=== PATIENT | female | born 1945 | race Caucasian/White ===

== ENCOUNTER 2017-08-12 21:23 | Observation (INO) | payer OTHER ==
--- NOTE | 2017-08-12 21:41 | PDOC ---
History of Present Illness - General History Source: Patient, Significant Other Exam Limitations: No Limitations - History of Present Illness Initial Comments: 08/12/17 22:35 The patient is a 72 year old female, with a significant past medical history of HTN, CAD s/p stent, DM, HLD who presents to the emergency department with sudden onset of headache and aphasia since 7PM this evening. Patients at bedside, reports has intermittent difficulty expressing words. Patient also reports SOB. Patient denies any weakness or numbness. 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 She denies chest pain, headache or dizziness. She denies fever, chills, abdominal pain, nausea, vomit, diarrhea or constipation. She denies dysuria, frequency, urgency or hematuria. Patient denies sick contacts or recent travel. Allergies: NKA PCP: Erick Cardiology: Abiodun <Dina Davison - Last Filed: 08/12/17 23:00> - General History Source: Patient <Mario Mohan - Last Filed: 08/13/17 19:35> - General Chief Complaint: CVA/TIA Stated Complaint: EVALUATION Time Seen by Provider: 08/12/17 21:38 Past History <Dina Daviosn - Last Filed: 08/12/17 23:00> - Past Medical History Cardiac Disorders: Yes Diabetes: Yes GI Disorders: Yes HTN: Yes Hypercholesterolemia: Yes - Surgical History Cardiac Surgery: Yes (STENT) - Suicide/Smoking/Psychosocial Hx Smoking Status: No Smoking History: Never smoked Have you smoked in the past 12 months: No Information on smoking cessation initiated: No Hx Alcohol Use: No Drug/Substance Use Hx: No Substance Use Type: None <Mario Mohan - Last Filed: 08/13/17 19:35> - Past Medical History Allergies/Adverse Reactions: Allergies Allergy/AdvReac Type Severity Reaction Status Date / Time No Known Allergies Allergy Verified 12/12/15 09:20 Home Medications: Ambulatory Orders Aspirin [ASA -] 81 mg PO DAILY 12/12/15 Atorvastatin Ca [Lipitor -] 40 mg PO HS 12/12/15 Cholecalciferol (Vitamin D3) [Vitamin D] 2,000 unit PO DAILY 12/12/15 Glyburide/Metformin HCl [Glyburide-Metformin 2.5-500 mg] 2 each PO BID 12/12/15 Lisinopril [Prinivil -] 20 mg PO DAILY 12/12/15 Metoprolol Succinate [Toprol Xl -] 25 mg PO DAILY 12/12/15 Sitagliptin Phosphate [Januvia] 100 mg PO DAILY 12/12/15 Review of Systems - Review of Systems Able to Perform ROS?: Yes Comments:: 08/12/17 22:35 CONSTITUTIONAL: Absent: fever, chills, diaphoresis, generalized weakness, malaise, loss of appetite HEENT: Absent: rhinorrhea, nasal congestion, throat pain, throat swelling, difficulty swallowing, mouth swelling, ear pain, eye pain, visual Changes CARDIOVASCULAR: Absent: chest pain, syncope, palpitations, irregular heart rate, lightheadedness , peripheral edema RESPIRATORY: Absent: cough, shortness of breath, dyspnea with exertion, orthopnea, wheezing, stridor, hemoptysis GASTROINTESTINAL: Absent: abdominal pain, abdominal distension, nausea, vomiting, diarrhea, constipation, melena, hematochezia GENITOURINARY: Absent: dysuria, frequency, urgency, hesitancy, hematuria, flank pain, genital pain MUSCULOSKELETAL: Absent: myalgia, arthralgia, joint swelling SKIN: Absent: rash, itching, pallor HEMATOLOGIC/IMMUNOLOGIC: Absent: easy bleeding, easy bruising, lymphadenopathy, frequent infections ENDOCRINE: Absent: unexplained weight gain, unexplained weight loss, heat intolerance, cold intolerance NEUROLOGIC: +headache. +aphasia. Absent: focal weakness or paresthesias, dizziness, unsteady gait, seizure, mental status changes, bladder or bowel incontinence PSYCHIATRIC: Absent: anxiety, depression, suicidal or homicidal ideation, hallucinations. <Dina Davison - Last Filed: 08/12/17 23:00> *Physical Exam - Vital Signs Last Vital Signs Temp Pulse Resp BP Pulse Ox 98.8 F 92 H 20 224/88 99 08/12/17 21:24 08/12/17 21:24 08/12/17 21:24 08/12/17 21:24 08/12/17 21:24 - Physical Exam Comments: 08/12/17 22:35 GENERAL: Well developed, well nourished. Awake and alert. In no acute distress. HEENT: Normocephalic, atraumatic. PERRLA, EOMI. No conjunctival pallor. Sclerae are non -icteric. Moist mucous membranes. Oropharynx is clear. NECK: Supple. Full ROM. No JVD. Carotid pulses 2+ and symmetric, without bruits. No thyromegaly. No lymphadenopathy. CARDIOVASCULAR: Regular rate and rhythm. No murmurs, rubs, or gallops. Distal pulses are 2+ and symmetric. PULMONARY: No evidence of respiratory distress. Lungs clear to auscultation bilaterally. No wheezing, rales or rhonchi. ABDOMINAL: Soft. Non-tender. Non-distended. No rebound or guarding. No organomegaly. Normoactive bowel sounds. MUSCULOSKELETAL Normal range of motion at all joints. No bony deformities or tenderness. No CVA tenderness. EXTREMITIES: No cyanosis. No clubbing. No edema. No calf tenderness. SKIN: Warm and dry. Normal capillary refill. No rashes. No jaundice. NEUROLOGICAL: Alert, awake, appropriate. Cranial nerves 2-12 intact. No deficits to light touch and temperature in face, upper extremities and lower extremities. No motor deficits in the in face, upper extremities and lower extremities. Normoreflexic in the upper and lower extremities. Normal speech. Toes are downgoing bilaterally. Gait is normal without ataxia. PSYCHIATRIC: Cooperative. Good eye contact. Appropriate mood and affect. <Dina Davison - Last Filed: 08/12/17 23:00> - Vital Signs Last Vital Signs Temp Pulse Resp BP Pulse Ox 98.8 F 92 H 20 224/88 99 08/12/17 21:24 08/12/17 21:24 08/12/17 21:24 08/12/17 21:24 08/12/17 21:24 <Mario Mohan - Last Filed: 08/13/17 19:35> NIH Stroke Scale - Last Known Well Date/Time & Onset Date Last Known Well: 08/12/17 Time Last Known Well: 19:00 - Initial Evaluation Level of consciousness: Alert Ask patient the month and their age: Answers both correctly Ask patient to open & close eyes; make fist and let go: Obeys both correctly Best gaze (horizontal eye movement): Normal Visual field testing: No visual field loss Facial paresis (Show teeth/raise eyebrows/close eyes tight): Normal symmetrical movement Motor Function: Left Arm: Normal Motor Function: Right Arm: Normal (extends arm 90 (or 45) degrees for 10 seconds without drift Motor Function: Left Leg: Normal (extends leg 30 degrees for 5 seconds without drift) Motor Function: Right Leg: Normal (extends leg 30 degrees for 5 seconds without drift) Limb Ataxia: No ataxia Sensory(Use pinprick test arms,legs,trunk,face/side to side): Normal Best language (Describe picture, name items, read sentences): No Aphasia Dysarthria (read several words): Normal articulation Extinction and Inattention: No abnormality - Total Score NIH Stroke Scale Score: 0 <Mario Mohan - Last Filed: 08/13/17 19:35> tPA Exclusion Checklist 0-3hr - Time Elapsed Date last known well: 08/12/17 Time last known well: 19:00 Elaspsed time: 1 Day(s) and 0 Hour(s) and 35 Minutes - Thrombolytic Therapy Candidate Is the patient eligible for Thrombolytic Therapy?: No - Exclusion Criteria 0-3hr SBP greater than 185 or DBP greater than 110mmHg despite tx: No Recent IC/spinal surgery,head trauma or stroke w/in last 3mo: No Hx of previous IC hemorrhage, IC neoplasm, AVM or aneurysm: No Active internal bleeding: No Blding diathesis(low plt ct, inc PTT,INR>1.7 or use of NOAC): No Symptoms suggest subarachnoid hemorrhage: No CT demonstrates multilobar infarct(>1/3 cerebral hemiphere): No Arterial puncture at noncompressible site in previous 7 days: No Blood glucose concentration less than 50mg/dL (2.7mmol/L): No - Relative Exclusion Criteria 0-3h Life expectancy <1yr/severe co-morbid illness/DOLL WIGS [facility] on admit: No : No Patient/family refused: No Rapid improvement: Yes Stroke severity too mild: Yes Recent acute FL (w/in previous 3 months): No Seizure at onset with postictal residual neuro impairments: No Major surgery or serious trauma w/in previous 14 days: No Recent GI or hemorrhage (w/in previous 21 days): No - Ineligibility reason(s) Reasons No tPA given: See reason(s) noted above (rapid improvement) <Mario Mohan - Last Filed: 08/13/17 19:35> Heart Score/ECG Review #1 08/12/17 23:[address] Sinisterra Vent. rate 88 bpm NSR RSR or QR pattern in V1 suggests R ventricular conduction delay Voltage criteria for L ventricular hypertrophy Abnormal ECG <Dina Davison - Last Filed: 08/12/17 23:00> Critical Care Time/MDM Note - Medical Decision Making Note: 08/12/17 22:[address] Duncan office. Awaiting call back. Documentation prepared by Dina Davison, acting as medical coder for Mario Mohan MD/DO. <Dina Davison - Last Filed: 08/12/17 23:00> - Medical Decision Making Note: 08/13/17 19:35 Dr. Mohan: The scribe's documentation has been prepared under my direction and personally reviewed by me in its entirery. I confirm that the note above accurately reflects all work, treatment, procedures, and medical decision making performed by me. <Mario Mohan - Last Filed: 08/13/17 19:35> Discharge Disposition <Dina Davison - Last Filed: 08/12/17 23:00> - Discharge Dispostion Admit: Yes <Mario Mohan - Last Filed: 08/13/17 19:35> - Diagnosis TIA (transient ischemic attack) Qualifiers: Transient cerebral ischemia type: unspecified Qualified Code(s): G45.9 - Transient cerebral ischemic attack, unspecified
[2017-08-12] MEDS ORDERED: SODIUM CHLORIDE 1,000 ML IV SCH (21:45)
[2017-08-12 21:48] LABS: BASOPHIL 1.2 % (0-2.0); EOSINOPHIL 2.4 % (0-4.5); MEAN CELL VOLUME 62.3 fl (80-96); MEAN PLT VOLUME 8.7 fl (7.5-11.1); NEUTROPHILS 67.9 % (42.8-82.8); PLATELET COUNT 230 K/MM3 (134-434); RDW 16.1 % (11.6-15.6)
[2017-08-12 21:49] LABS: MCH 19.9 pg (25.7-33.7)
[2017-08-12 22:03] LABS: INR 0.95 (0.82-1.09); PROTHROMBIN TIME (PATIENT) 10.7 SEC (9.98-11.88)
[2017-08-12 22:07] LABS: HYPOCHROMIA 2+; POLYCHROMASIA F
[2017-08-12 22:08] LABS: ANISOCYTOSIS 1+; MICROCYTOSIS 1+; OVALOCYTE FEW; PLATELET ESTIMATE ADEQUATE (NORMAL); TEAR DROP CELLS FEW
[2017-08-12 22:13] LABS: ALBUMIN 3.9 g/dl (3.4-5.0); ANION GAP 9 (8-16); CALCIUM 9.1 mg/dL (8.5-10.1); CHOLESTEROL 152 mg/dL (50-200); CO2 26 mmol/L (21-32); CREATININE 0.7 mg/dL (0.55-1.02); GLUCOSE,RANDOM 150 mg/dL (74-106); SGOT/AST 17 U/L (15-37); SGPT/ALT 20 U/L (12-78)
[2017-08-12 22:15] LABS: ALK PHOS 85 U/L (45-117); BILIRUBIN,TOTAL 0.6 mg/dL (0.2-1.0); CPK 120 IU/L (26-192); TOT PROT 6.9 g/dl (6.4-8.2); TROPONIN I < 0.02 ng/ml (0.00-0.05)
[2017-08-12] MEDS ORDERED: hydrALAZINE HCL 20 MG/ML VIAL IVPUSH ONE (22:40)
[2017-08-12 22:56] LABS: URINE APPEARANCE CLEAR; URINE BILIRUBIN NEGATIVE (NEGATIVE); URINE BLOOD 1+ (NEGATIVE); URINE COLOR STRAW; URINE GLUCOSE (UA) 1+ (NEGATIVE); URINE KETONE TRACE (NEGATIVE); URINE NITRITE NEGATIVE (NEGATIVE); URINE PROTEIN NEGATIVE (NEGATIVE); URINE UROBILINOGEN NEGATIVE mg/dL (0.2-1.0)
[2017-08-12 22:59] LABS: URINE RBC <1 /hpf (0-3); URINE WBC <1 /hpf (3-5)
[2017-08-12] MEDS ORDERED: hydrALAZINE HCL 20 MG/ML VIAL ONE (23:00)
[2017-08-12] MEDS ORDERED: ASPIRIN 81 MG CHEWABLE TABLETS PO ONE (23:14)
[2017-08-12] MEDS ORDERED: ASPIRIN 81 MG CHEWABLE TABLETS ONE (23:22)
--- NOTE | 2017-08-12 23:31 | PN ---
Teaching Attending Note Name of Resident: Riki Vaughn ATTENDING PHYSICIAN STATEMENT I saw and evaluated the patient. I reviewed the resident's note and discussed the case with the resident. I agree with the resident's findings and plan as documented. SUBJECTIVE: 72 yo w pmhx of HTN, CAD s/p stent, DM, HLD, who presents with headache and aphasia. States she had difficulty expressing herself and would speak random words. Also noted a headache, which was mild in nature. No NEW visual changes. No chest pain or pressure. No shortness of breath. No N/V/D. NO dysphagia or odonophagia. OBJECTIVE: Physical: VS: Vital Signs Period Temp Pulse Resp BP Sys/Owens Pulse Ox Last 24 Hr 98.8 F 88-92 20-20 200-224/76-88 99-100 GEN: NAD, Resting in bed, able to speak full, fluent sentences, AA0X3 HEENT: NCAT, PERRL, throat without erythema or exudates CARD: RRR S1, S2 RESP: CTAB ABD: BSX4, NTD to palpation EXT: - C/C/E NEURO: CN II-XII intact, MS+5/5, Sensation intact all anaya CBCD WBC 5.0 K/mm3 (4.0-10.0) 08/12/17 21:41 RBC 5.22 M/mm3 (3.60-5.2) H 08/12/17 21:41 Hgb 10.4 GM/dL (10.7-15.3) L D 08/12/17 21:41 Hct 32.5 % (32.4-45.2) 08/12/17 21:41 MCV 62.3 fl (80-96) L 08/12/17 21:41 MCHC 32.0 g/dl (32.0-36.0) 08/12/17 21:41 RDW 16.1 % (11.6-15.6) H 08/12/17 21:41 Plt Count 230 K/MM3 (134-434) 08/12/17 21:41 MPV 8.7 fl (7.5-11.1) 08/12/17 21:41 CMP Sodium 139 mmol/L (136-145) 08/12/17 21:41 Potassium 4.9 mmol/L (3.5-5.1) D 08/12/17 21:41 Chloride 104 mmol/L (98-107) 08/12/17 21:41 Carbon Dioxide 26 mmol/L (21-32) 08/12/17 21:41 Anion Gap 9 (8-16) 08/12/17 21:41 BUN 18 mg/dL (7-18) 08/12/17 21:41 Creatinine 0.7 mg/dL (0.55-1.02) 08/12/17 21:41 Creat Clearance w eGFR > 60 (>60) 08/12/17 21:41 Random Glucose 150 mg/dL (74-106) H D 08/12/17 21:41 Calcium 9.1 mg/dL (8.5-10.1) 08/12/17 21:41 Total Bilirubin 0.6 mg/dL (0.2-1.0) 08/12/17 21:41 AST 17 U/L (15-37) 08/12/17 21:41 ALT 20 U/L (12-78) 08/12/17 21:41 Alkaline Phosphatase 85 U/L (45-117) D 08/12/17 21:41 Total Protein 6.9 g/dl (6.4-8.2) 08/12/17 21:41 Albumin 3.9 g/dl (3.4-5.0) 08/12/17 21:41 CARDIAC ENZYMES Creatine Kinase 120 IU/L (26-192) 08/12/17 21:41 Troponin I < 0.02 ng/ml (0.00-0.05) 08/12/17 21:41 NIHSS 0 EKG: NSR 88, Q waves anterior lead CXR- Pending CT HEAD- NO acute process ASSESSMENT AND PLAN: 72 yo f with pmhx of HTN, CAD s/p Stent, DM, HLD, who presents with headache and aphasia, being admitted for CVA/TIA 1.) CVA/TIA Ddz: PRESS - MRI Brain wo con - Neuro Consult - TSH, B12, ESR, Folate - ASA - Lipid Panel/A1c - EKG/TROP - ECHO, Carotid's (JUST done oupt, get records from Dr. Rascon) 2.) HTN Urgency - BP improved - C/W home meds 3.) CAD s/p Stent - C/W home meds 4.) DM - Hold Po meds - FS - RAISS 5.) HLD - C/W statin 6.) Microcytic Anemia - Fe Studies 7.) Dvt Ppx - Low Risk - SCDs Place in Obs- Tele
--- NOTE | 2017-08-13 | HP ---
Admitting History and Physical - Primary Care Physician PCP: Don Suarez - Admission Chief Complaint: confusion History of Present Illness: 72F presents to the hospital for confusion. Patient watching jeopardy with her and she realized she had some trouble finding her words and couldn't think. She realized some of the words and sentences she was saying did not make sense. She stated she had a headache and before this whole event she started to feel cold. She denies nausea vomiting fevers chills chest pain or shortness of breath. She denies any other symptoms. Noted to be hypertensive in ED upon arrival BP 224/88. 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: Abiodun History Source: Patient, Significant Other, Medical Record Limitations to Obtaining History: Clinical Condition - Past Medical History Cardiovascular: Yes: CAD (s/p stent x1), HTN, Hyperlipdemia Endocrine: Yes: Diabetes Mellitus - Past Surgical History Additional Past Surgical History: eye surgery ovarian cystectomy - Smoking History Smoking history: Never smoked Have you smoked in the past 12 months: No - Alcohol/Substance Use Hx Alcohol Use: No Home Medications - Allergies Allergies/Adverse Reactions: Allergies Allergy/AdvReac Type Severity Reaction Status Date / Time No Known Allergies Allergy Verified 12/12/15 09:20 - Home Medications Home Medications: Ambulatory Orders Aspirin [ASA -] 81 mg PO DAILY 12/12/15 Atorvastatin Ca [Lipitor -] 40 mg PO HS 12/12/15 Cholecalciferol (Vitamin D3) [Vitamin D] 2,000 unit PO DAILY 12/12/15 Glyburide/Metformin HCl [Glyburide-Metformin 2.5-500 mg] 2 each PO BID 12/12/15 Lisinopril [Prinivil -] 20 mg PO DAILY 12/12/15 Metoprolol Succinate [Toprol Xl -] 25 mg PO DAILY 12/12/15 Sitagliptin Phosphate [Januvia] 100 mg PO DAILY 12/12/15 Review of Systems - Review of Systems Constitutional: reports: Chills Neurological: reports: Change in Speech, Confusion, Headache Physical Examination Vital Signs: Vital Signs Temperature 98.8 F 08/12/17 21:24 Pulse Rate 88 08/12/17 22:52 Respiratory Rate 20 08/12/17 22:52 Blood Pressure 200/76 08/12/17 22:52 O2 Sat by Pulse Oximetry (%) 100 08/12/17 22:52 Constitutional: Yes: Well Nourished, No Distress, Calm Eyes: Yes: Conjunctiva Clear, Other (pupils not equal at baseline patient had eye surgery. they are both reactive to light) HENT: Yes: Atraumatic, Normocephalic Neck: Yes: Supple, Trachea Midline Cardiovascular: Yes: Regular Rate and Rhythm, Murmur (2/6 diastolic murmur only heard at RUSB), S1, S2 Respiratory: Yes: CTA Bilaterally Gastrointestinal: Yes: Normal Bowel Sounds, Soft, Abdomen, Obese. No: Tenderness ...Rectal Exam: Yes: WNL Renal/: Yes: WNL Musculoskeletal: Yes: WNL Extremities: Yes: WNL Edema: No Neurological: Yes: Alert, Oriented (x3), Other (NIHSS 0) ...Motor Strength: WNL Labs: CBC, BMP 08/12/17 21:41 08/12/17 21:41 Imaging - Results Cat Scan: Report Reviewed, Image Reviewed Assessment/Plan 72F with multiple medical problems presents to the ED with confusion and trouble finding her words. Problem list: CVA vs TIA vs hypertensive encephalopathy hypertensive emergency HTN HLD DM CAD confusion anomic aphasia Microcytic anemia Plan: Place on obs/tele echo BP control restart home meds lisinopril and metoprolol restart statin lipid panel HbA1C repeat labs in AM iron studies B12 folate ESR CRP TSH repeat cardiac profile MRI Neurology consult ISS ACHS BGM ACHS hold oral hypoglycemics CXR DVT PPx Aspirin Case discussed with attending and admitting nutrition intern Full H&P to follow Visit type - Emergency Visit Emergency Visit: Yes ED Registration Date: 08/12/17 Care time: The patient presented to the Emergency Department on the above date and was hospitalized for further evaluation of their emergent condition. - New Patient This patient is new to me today: Yes Date on this admission: 08/12/17 - Critical Care Critical Care patient: No NIH Stroke Scale - Initial Evaluation Level of consciousness: Alert Ask patient the month and their age: Answers both correctly Ask patient to open & close eyes; make fist and let go: Obeys both correctly Best gaze (horizontal eye movement): Normal Visual field testing: No visual field loss Facial paresis (Show teeth/raise eyebrows/close eyes tight): Normal symmetrical movement Motor Function: Left Arm: Normal Motor Function: Right Arm: Normal (extends arm 90 (or 45) degrees for 10 seconds without drift Motor Function: Left Leg: Normal (extends leg 30 degrees for 5 seconds without drift) Motor Function: Right Leg: Normal (extends leg 30 degrees for 5 seconds without drift) Limb Ataxia: No ataxia Sensory(Use pinprick test arms,legs,trunk,face/side to side): Normal Best language (Describe picture, name items, read sentences): No Aphasia Dysarthria (read several words): Normal articulation Extinction and Inattention: No abnormality - Total Score NIH Stroke Scale Score: 0
--- NOTE | 2017-08-13 02:17 | HP ---
<Kem Martinez - Last Filed: 08/13/17 03:58> CHIEF COMPLAINT: PCP: HISTORY OF PRESENT ILLNESS: ER course was notable for: (1) (2) (3) Recent Travel: PAST MEDICAL HISTORY: PAST SURGICAL HISTORY: Social History: Smoking: Alcohol: Drugs: Family History: Allergies No Known Allergies Allergy (Verified 12/12/15 09:20) HOME MEDICATIONS: Home Medications Medication Instructions Recorded Aspirin [ASA -] 81 mg PO DAILY 12/12/15 Atorvastatin Ca [Lipitor -] 40 mg PO HS 12/12/15 Cholecalciferol (Vitamin D3) 2,000 unit PO DAILY 12/12/15 [Vitamin D] Glyburide/Metformin HCl 2 each PO BID 12/12/15 [Glyburide-Metformin 2.5-500 mg] Lisinopril [Prinivil -] 20 mg PO DAILY 12/12/15 Metoprolol Succinate [Toprol Xl -] 25 mg PO DAILY 12/12/15 Sitagliptin Phosphate [Januvia] 100 mg PO DAILY 12/12/15 REVIEW OF SYSTEMS CONSTITUTIONAL: Absent: fever, chills, diaphoresis, generalized weakness, malaise, loss of appetite, weight change HEENT: Absent: rhinorrhea, nasal congestion, throat pain, throat swelling, difficulty swallowing, mouth swelling, ear pain, eye pain, visual changes CARDIOVASCULAR: Absent: chest pain, syncope, palpitations, irregular heart rate, lightheadedness , peripheral edema RESPIRATORY: Absent: cough, shortness of breath, dyspnea with exertion, orthopnea, wheezing, stridor, hemoptysis GASTROINTESTINAL: Absent: abdominal pain, abdominal distension, nausea, vomiting, diarrhea, constipation, melena, hematochezia GENITOURINARY: Absent: dysuria, frequency, urgency, hesitancy, hematuria, flank pain, genital pain MUSCULOSKELETAL: Absent: myalgia, arthralgia, joint swelling, back pain, neck pain SKIN: Absent: rash, itching, pallor HEMATOLOGIC/IMMUNOLOGIC: Absent: easy bleeding, easy bruising, lymphadenopathy, frequent infections ENDOCRINE: Absent: unexplained weight gain, unexplained weight loss, heat intolerance, cold intolerance NEUROLOGIC: Absent: headache, focal weakness or paresthesias, dizziness, unsteady gait, seizure, mental status changes, bladder or bowel incontinence PSYCHIATRIC: Absent: anxiety, depression, suicidal or homicidal ideation, hallucinations. PHYSICAL EXAMINATION Vital Signs - 24 hr 08/12/17 08/13/17 08/13/17 22:52 00:43 03:47 Pulse Rate [ 88 78 76 Right] Respiratory 20 20 18 Rate Blood Pressure 200/76 165/66 162/71 [Left Arm] O2 Sat by Pulse 100 100 100 Oximetry (%) GENERAL: Awake, alert, and fully oriented, in no acute distress. HEAD: Normal with no signs of trauma. EYES: Pupils equal, round and reactive to light, extraocular movements intact, sclera anicteric, conjunctiva clear. No lid lag. EARS, NOSE, THROAT: Ears normal, nares patent, oropharynx clear without exudates. Moist mucous membranes. NECK: Normal range of motion, supple without lymphadenopathy, JVD, or masses. LUNGS: Breath sounds equal, clear to auscultation bilaterally. No wheezes, and no crackles. No accessory muscle use. HEART: Regular rate and rhythm, normal S1 and S2 without murmur, rub or gallop. ABDOMEN: Soft, nontender, not distended, normoactive bowel sounds, no guarding, no rebound, no masses. No hepatomegaly or splenomegaly. MUSCULOSKELETAL: Normal range of motion at all joints. No bony deformities or tenderness. No CVA tenderness. UPPER EXTREMITIES: 2+ pulses, warm, well-perfused. No cyanosis. No clubbing. No peripheral edema. LOWER EXTREMITIES: 2+ pulses, warm, well-perfused. No calf tenderness. No peripheral edema. NEUROLOGICAL: Cranial nerves II-XII intact. Normal speech. Normal gait. PSYCHIATRIC: Cooperative. Good eye contact. Appropriate mood and affect. SKIN: Warm, dry, normal turgor, no rashes or lesions noted, normal capillary refill. ASSESSMENT/PLAN: <Riki Vaughn - Last Filed: 08/14/17 19:36> CHIEF COMPLAINT: aphasia, headache PCP: Dr. Suarez Journalists And Other Writers: Dr. Rascon Ophthomologist: Brooklynn HISTORY OF PRESENT ILLNESS: Pt is a 72 year old F with PMH HTN, CAD s/p stents, DM, HLD who presented to the ED stating she was not able to speak normally this evening. Pt states that at 7 pm she felt cold and her speech suddenly didn't make sense. She had trouble finding words. Pt's states she was able to enunciate clearly, but her sentences were gibberish. Pt also states she developed a headache around the same time. Pt denies nausea, vomiting, cp, sob, blurry vision, dizziness, fall, loc. 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 At the time of the interview, pt's word finding difficulty had resolved, and headache had subsided greatly. ER course was notable for: (1) labs notable for Hb 10, MCV 62, glucose 150, TGs 207 (2) CT head negative for acute pathology, CXR unremarkable pending final read (3) Recent Travel: denies PAST MEDICAL HISTORY: HTN, CAD s/p stents, DM, HLD PAST SURGICAL HISTORY: remote ovarian cystectomy Social History: Smoking: denies Alcohol: rare Drugs: denies Family History: denies Allergies No Known Allergies Allergy (Verified 12/12/15 09:20) HOME MEDICATIONS: Home Medications Medication Instructions Recorded Aspirin [ASA -] 81 mg PO DAILY 12/12/15 Atorvastatin Ca [Lipitor -] 40 mg PO HS 12/12/15 Cholecalciferol (Vitamin D3) 2,000 unit PO DAILY 12/12/15 [Vitamin D] Glyburide/Metformin HCl 2 each PO BID 12/12/15 [Glyburide-Metformin 2.5-500 mg] Lisinopril [Prinivil -] 20 mg PO DAILY 12/12/15 Metoprolol Succinate [Toprol Xl -] 25 mg PO DAILY 12/12/15 Sitagliptin Phosphate [Januvia] 100 mg PO DAILY 12/12/15 REVIEW OF SYSTEMS CONSTITUTIONAL: Absent: fever, chills, diaphoresis, generalized weakness, malaise, loss of appetite, weight change HEENT: Absent: rhinorrhea, nasal congestion, throat pain, throat swelling, difficulty swallowing, mouth swelling, ear pain, eye pain, visual changes CARDIOVASCULAR: Absent: chest pain, syncope, palpitations, irregular heart rate, lightheadedness , peripheral edema RESPIRATORY: Absent: cough, shortness of breath, dyspnea with exertion, orthopnea, wheezing, stridor, hemoptysis GASTROINTESTINAL: Absent: abdominal pain, abdominal distension, nausea, vomiting, diarrhea, constipation, melena, hematochezia GENITOURINARY: Absent: dysuria, frequency, urgency, hesitancy, hematuria, flank pain, genital pain MUSCULOSKELETAL: Absent: myalgia, arthralgia, joint swelling, back pain, neck pain SKIN: Absent: rash, itching, pallor HEMATOLOGIC/IMMUNOLOGIC: Absent: easy bleeding, easy bruising, lymphadenopathy, frequent infections ENDOCRINE: Absent: unexplained weight gain, unexplained weight loss, heat intolerance, cold intolerance NEUROLOGIC: headache, mental status changes Absent: , focal weakness or paresthesias, dizziness, unsteady gait, seizure, , bladder or bowel incontinence PSYCHIATRIC: Absent: anxiety, depression, suicidal or homicidal ideation, hallucinations. PHYSICAL EXAMINATION Vital Signs - 24 hr 08/13/17 00:43 Pulse Rate [ 78 Right] Respiratory 20 Rate Blood Pressure 165/66 [Left Arm] O2 Sat by Pulse 100 Oximetry (%) GENERAL: Awake, alert, and fully oriented, in no acute distress. Slightly anxious HEAD: Normal with no signs of trauma. EYES: Pupils L larger than right, round and reactive to light, extraocular movements intact, sclera anicteric, conjunctiva clear. No lid lag. EARS, NOSE, THROAT: oropharynx clear without exudates. Moist mucous membranes. Symmetric palate elevation. Tongue extension midline. NECK: Normal range of motion, supple without lymphadenopathy, JVD, or masses. Soft b/l carotid bruits radiating from heart LUNGS: Breath sounds equal, clear to auscultation bilaterally. No wheezes, and no crackles. No accessory muscle use. HEART: Regular rate and rhythm, normal S1 and S2. 2/6 systolic murmur best heard at RUSB, rub or gallop. ABDOMEN: Soft, nontender, not distended, normoactive bowel sounds, no guarding, no rebound, no masses. No hepatomegaly or splenomegaly. MUSCULOSKELETAL: Normal range of motion at all joints. No bony deformities or tenderness. No CVA tenderness. UPPER EXTREMITIES: 2+ pulses, warm, well-perfused. No cyanosis. No clubbing. No peripheral edema. LOWER EXTREMITIES: 2+ pulses, warm, well-perfused. No calf tenderness. No peripheral edema. NEUROLOGICAL: Cranial nerves II-XII intact. Normal speech. strength 5/5 throughout. Sensation intact throughout. Reflexes 2+ in biceps b/l, patellar b/ l. Unable to elicit achilles tendon reflex PSYCHIATRIC: Cooperative. Good eye contact. Appropriate mood and affect. SKIN: Warm, dry, normal turgor, no rashes or lesions noted, normal capillary refill. ASSESSMENT/PLAN: Pt is a 72F with PMH HTN, CAD s/p stents, DM, HLD who presented to the ED with aphasia and headache. Pt is being admitted to tele obs for TIA vs CVA. #TIA/CVA -pt had aphasia for approximately 1 hr this evening. stated that patient 's speech was strikingly different from normal. Unlikely to be CVA as symptoms have resolved. -included in differential is hypertensive encephalopathy. Pt came to ED with BP of 200 systolic. Did not measure pressure at home during the episode -MRI -Echo -EKG -Neuro checks -Pt had carotid studies done recently with Dr. Rascon -[facility] -Neuro consult Dr. Pate -[facility] #Anomic Aphasia -resolved -possibly 2/2 TIA, CVA, or hypertensinve encephalopathy #HTN -per pt, normal BPs at the doctor's office are around 120/60 -BP of 200 sys on admission -metoprolol -lisinopril #DM -glc of 150 on admission -hold DM meds for now -BGM -ISS -A1C #Microcytic anemia -Hb 10, MCV 62 -Fe studies #CAD -stable -Lipitor #HLD -TGs 207 -repeat cardiac profile in am #PPX -DVT: low risk. SCDs -deconditioning: pt is low risk #FEN -NS @ 42 -lytes wnl -DM diet, low sodium #Dispo -Admit to Tele Obs Riki Vaughn MD PGY-1 Case discussed with senior Visit type - Emergency Visit Emergency Visit: No - New Patient This patient is new to me today: No - Critical Care Critical Care patient: No
[2017-08-13 05:44] VITALS: BMI 28.5
[2017-08-13] MEDS: HEPARIN NA (PORCINE) 5,000 UNITS/ML 1ML VIAL SQ SCH ×3 (06:47→21:59)
[2017-08-13] MEDS: INSULIN SLIDING SCALE (NOVOLOG) 1 VIAL SQ SCH ×4 (06:48→21:47)
[2017-08-13 07:27] LABS: MCHC 31.8 g/dl (32.0-36.0); MEAN CELL VOLUME 62.3 fl (80-96); PLATELET COUNT 219 K/MM3 (134-434); WHITE BLOOD COUNT 5.1 K/mm3 (4.0-10.0)
[2017-08-13 07:35] LABS: MCH 19.8 pg (25.7-33.7)
[2017-08-13 08:17] LABS: FERRITIN 29.404 ng/ml (6.9-282.5); THYROID STIMULATING HORMONE 0.41 uIU/ml (0.358-3.74)
[2017-08-13 08:36] LABS: ALBUMIN 3.5 g/dl (3.4-5.0); ALK PHOS 59 U/L (45-117); ANION GAP 9 (8-16); BILIRUBIN,TOTAL 0.7 mg/dL (0.2-1.0); C-REACTIVE PROTEIN < 0.3 MG/DL (0.00-0.3); CALCIUM 8.3 mg/dL (8.5-10.1); CO2 25 mmol/L (21-32); CPK 77 IU/L (26-192); CREATININE 0.5 mg/dL (0.55-1.02); GLUCOSE,RANDOM 196 mg/dL (74-106); MAGNESIUM 1.7 mg/dL (1.8-2.4); PHOSPHOROUS 3.3 mg/dL (2.5-4.9); SGOT/AST 9 U/L (15-37); SGPT/ALT 16 U/L (12-78); TOT PROT 5.8 g/dl (6.4-8.2); TROPONIN I 0.02 ng/ml (0.00-0.05)
--- NOTE | 2017-08-13 08:53 | CON.NEURO ---
Consult - Past Medical History Cardio/Vascular: Yes: CAD (s/p stent x1), HTN, Hyperlipdemia ...: No Endocrine: Yes: Diabetes Mellitus - Alcohol/Substance Use Hx Alcohol Use: No - Smoking History Smoking history: Never smoked Have you smoked in the past 12 months: No Home Medications - Allergies Allergies/Adverse Reactions: Allergies Allergy/AdvReac Type Severity Reaction Status Date / Time No Known Allergies Allergy Verified 12/12/15 09:20 - Home Medications Home Medications: Ambulatory Orders Aspirin [ASA -] 81 mg PO DAILY 12/12/15 Atorvastatin Ca [Lipitor -] 40 mg PO HS 12/12/15 Cholecalciferol (Vitamin D3) [Vitamin D] 2,000 unit PO DAILY 12/12/15 Glyburide/Metformin HCl [Glyburide-Metformin 2.5-500 mg] 2 each PO BID 12/12/15 Lisinopril [Prinivil -] 20 mg PO DAILY 12/12/15 Metoprolol Succinate [Toprol Xl -] 25 mg PO DAILY 12/12/15 Sitagliptin Phosphate [Januvia] 100 mg PO DAILY 12/12/15 Physical Exam-Neuro Vital Signs: Vital Signs Temperature 98.5 F 08/13/17 06:56 Pulse Rate 75 08/13/17 06:56 Respiratory Rate 16 08/13/17 06:56 Blood Pressure 148/65 08/13/17 06:56 O2 Sat by Pulse Oximetry (%) 100 08/13/17 06:55 Labs: CBC, BMP 08/13/17 05:35 08/13/17 05:35 INR, PTT INR 0.95 (0.82-1.09) 08/12/17 21:41 Assessment/Plan cc episode of aphasia lasting one hour HPI 72 year old female history of htn, cad s/p stents, diabetes, hyperlipidemia . She came to emergency when she could not talk properly and it lasted one hour. She takes aspirin 81 mg at home and lipitor 20 mg once a day. She is come back to baseline . She recently had carotid ultrasound in [employer] office. PAST MEDICAL HISTORY: HTN, CAD s/p stents, DM, HLD PAST SURGICAL HISTORY: remote ovarian cystectomy Social History: Smoking: denies Alcohol: rare Drugs: denies Family History: denies Allergies None Ros reviewed in chart Neurological Examination VSS Alert oriented x 3 CN all intact Motor 5/5 in four extremity Sensation is normal CT head is normal Assessment -- TIA , risk factor including cad, htn, dm Plan -- lipitor increased to 40 mg once a day, continue, switch to plavix and d/ c aspirn - obtain carotid ultrasound report from [employer] office - mri of brain , she has orbital implant and may be claustrophobic, if not possible repeat ct head - stroke education - speech evaluation, pt - would follow with primary Thanks for consult Garrick Cosme MD
[2017-08-13 09:00] LABS: URINE LEUK ESTERASE Negative (NEGATIVE)
[2017-08-13] MEDS: CLOPIDOGREL BISULFATE 75 MG TABLET (FP) PO SCH (09:40)
[2017-08-13] MEDS: METOPROLOL SUCCINATE 25 MG TAB.SR.24H (FP) PO SCH (09:40)
[2017-08-13] MEDS ORDERED: LISINOPRIL 20 MG TABLET (FP) PO SCH ×2 (10:00→18:00)
[2017-08-13] MEDS ORDERED: ASPIRIN 81 MG CHEWABLE TABLETS PO SCH (10:00)
[2017-08-13 11:07] LABS: ERYTHROCYTE SEDIMENTATION RATE 5 mm/hr (0-30)
--- NOTE | 2017-08-13 11:49 | EKG ---
Test Reason : Blood Pressure : / mmHG Vent. Rate : 079 BPM Atrial Rate : 079 BPM P-R Int : 168 ms QRS Dur : 106 ms QT Int : 394 ms P-R-T Axes : 057 056 009 degrees QTc Int : 451 ms NORMAL SINUS RHYTHM LEFT VENTRICULAR HYPERTROPHY WITH REPOLARIZATION ABNORMALITY ANTERIOR INFARCT (CITED ON OR BEFORE 23-OCT-2010) ABNORMAL ECG WHEN COMPARED WITH ECG OF 23-OCT-2010 14:04, NO SIGNIFICANT CHANGE WAS FOUND Confirmed by HOWARD FONSECA MD ([id number]) on 08/13/2017 11:49:38 AM Referred By: Confirmed By:HOWARD FONSECA MD
--- NOTE | 2017-08-13 11:54 | EKG ---
Test Reason : Blood Pressure : / mmHG Vent. Rate : 068 BPM Atrial Rate : 068 BPM P-R Int : 160 ms QRS Dur : 102 ms QT Int : 408 ms P-R-T Axes : 056 052 041 degrees QTc Int : 433 ms NORMAL SINUS RHYTHM ANTERIOR INFARCT (CITED ON OR BEFORE 23-OCT-2010) ABNORMAL ECG WHEN COMPARED WITH ECG OF 12-AUG-2017 22:08, NO SIGNIFICANT CHANGE WAS FOUND Confirmed by MARIAN MCCULLOUGH, HOWARD ([id number]) on 08/13/2017 11:53:58 AM Referred By: GIANLUCA STEVENS Confirmed By:HOWARD FONSECA MD
--- NOTE | 2017-08-13 12:17 | PN ---
Progress Note, Physician Chief Complaint: Mrs Tucker says she has a slight headache today and she feels tired, but otherwise she is doing well. She denies slurred speech, numbness, chest pain, shortness of breath, nausea/vomiting. - Current Medication List Current Medications: Active Medications Atorvastatin Calcium (Lipitor -) 40 mg PO HS TIO Clopidogrel Bisulfate (Plavix -) 75 mg PO DAILY [facility] Last Admin: 08/13/17 09:40 Dose: 75 mg Heparin Sodium (Porcine) (Heparin -) 5,000 unit SQ TID [facility] Last Admin: 08/13/17 06:47 Dose: 5,000 unit Insulin Aspart (Novolog Vial Sliding Scale -) 1 vial SQ ACHS [facility] PRN Reason: Protocol Last Admin: 08/13/17 06:48 Dose: 2 units Lisinopril (Prinivil) 20 mg PO DAILY@1800 [facility] Metoprolol Succinate (Toprol Xl -) 25 mg PO DAILY [facility] Last Admin: 08/13/17 09:40 Dose: 25 mg - Objective Vital Signs: Vital Signs Temperature 36.9 C 08/13/17 06:56 Pulse Rate 75 08/13/17 06:56 Respiratory Rate 16 08/13/17 06:56 Blood Pressure 148/65 08/13/17 06:56 O2 Sat by Pulse Oximetry (%) 100 08/13/17 06:55 Constitutional: Yes: Well Nourished, No Distress, Calm Cardiovascular: Yes: Regular Rate and Rhythm. No: Gallop, Murmur, Rub Respiratory: Yes: Regular, CTA Bilaterally. No: Rales, Rhonchi, Wheezes Gastrointestinal: Yes: Normal Bowel Sounds, Soft. No: Distention, Tenderness Extremities: Yes: WNL Edema: No Labs: CBC, BMP 08/13/17 05:35 08/13/17 05:35 INR, PTT INR 0.95 (0.82-1.09) 08/12/17 21:41 Problem List - Problems (1) TIA (transient ischemic attack) Assessment/Plan: -currently resolved -appreciate neurology assistance -ECHO performed -obtain carotid ultrasound from office -MRI pending -placed on plavix -continue lipitor -plan for discharge tomorrow Code(s): G45.9 - TRANSIENT CEREBRAL ISCHEMIC ATTACK, UNSPECIFIED Qualifiers: Transient cerebral ischemia type: unspecified Qualified Code(s): G45.9 - Transient cerebral ischemic attack, unspecified; G45.9 - Transient cerebral ischemic attack, unspecified; G45.9 - Transient cerebral ischemic attack, unspecified (2) HTN (hypertension) Assessment/Plan: -on lisinopril and toprol xl -monitor -may need to increase Code(s): I10 - ESSENTIAL (PRIMARY) HYPERTENSION (3) HLD (hyperlipidemia) Assessment/Plan: -continue lipitor Code(s): E78.5 - HYPERLIPIDEMIA, UNSPECIFIED (4) Diabetes Assessment/Plan: -on diabetic diet -will restart januvia, metformin, and glyburide -monitor Code(s): E11.9 - TYPE 2 DIABETES MELLITUS WITHOUT COMPLICATIONS
[2017-08-13] MEDS: metFORMIN HCL 500 MG TABLET (FP) PO SCH (17:44)
[2017-08-13] MEDS: glyBURIDE 2.5 MG TABLET (FP) PO SCH (17:44)
[2017-08-13] MEDS ORDERED: PATIENT'S OWN MEDICATION (NON-FORMULARY) (Glyburide/Metformin Hcl [Glyburide-Metformin 2.5 PO SCH (22:00)
[2017-08-13] MEDS ORDERED: ATORVASTATIN CA 40 MG TABLET (FP) PO SCH ×2 (22:00)
[2017-08-14] MEDS: INSULIN SLIDING SCALE (NOVOLOG) 1 VIAL SQ SCH ×2 (06:04→12:16)
[2017-08-14 06:06] LABS: SERUM IRON 57 ug/dL (27-139); TOTAL IRON BINDING CAPACITY 241 ug/dL (250-450); UIBC 184 ug/dL (118-369)
[2017-08-14] MEDS: HEPARIN NA (PORCINE) 5,000 UNITS/ML 1ML VIAL SQ SCH (06:35)
[2017-08-14] MEDS: metFORMIN HCL 500 MG TABLET (FP) PO SCH (06:36)
[2017-08-14] MEDS: glyBURIDE 2.5 MG TABLET (FP) PO SCH (06:36)
[2017-08-14] MEDS ORDERED: sitaGLIPtin PHOSPHATE 100 MG TABLET (FP) PO SCH (07:00)
[2017-08-14 08:07] LABS: TRANSFERRIN 194 mg/dL (200-370)
[2017-08-14 08:19] LABS: EOSINOPHIL 3.2 % (0-4.5); MCHC 31.7 g/dl (32.0-36.0); MEAN CELL VOLUME 62.2 fl (80-96); PLATELET COUNT 187 K/MM3 (134-434); RDW 16.6 % (11.6-15.6); WHITE BLOOD COUNT 3.2 K/mm3 (4.0-10.0)
[2017-08-14 08:26] LABS: MCH 19.7 pg (25.7-33.7)
[2017-08-14 08:41] LABS: ANION GAP 11 (8-16); CALCIUM 8.4 mg/dL (8.5-10.1); CO2 24 mmol/L (21-32); CREATININE 0.4 mg/dL (0.55-1.02); GLUCOSE,RANDOM 103 mg/dL (74-106); PHOSPHOROUS 3.9 mg/dL (2.5-4.9)
--- NOTE | 2017-08-14 09:54 | PN ---
Progress Note (short form) - Note Progress Note: episode of aphasia lasting one hour 72 year old female history of htn, cad s/p stents, diabetes, hyperlipidemia . She came to emergency when she could not talk properly and it lasted one hour. She takes aspirin 81 mg at home and lipitor 20 mg once a day. She is come back to baseline . She recently had carotid ultrasound in [facility] office. no more episode since yesterday, mri of brain is normal, carotid ultrasound was done in office and report not available.plavix wa started and statin was incresed PAST MEDICAL HISTORY: HTN, CAD s/p stents, DM, HLD PAST SURGICAL HISTORY: remote ovarian cystectomy Social History: Smoking: denies Alcohol: rare Drugs: denies Family History: denies Allergies None Ros reviewed in chart Neurological Examination VSS Alert oriented x 3 CN all intact Motor 5/5 in four extremity Sensation is normal CT head is normal mri of brain is normal carotid ultrasound is not done as was done in [facility] nurse [facility] office recently Assessment -- TIA , risk factor including cad, htn, dm Plan -- continue lipitor and plavix - obtain carotid ultrasound report from [facility] [employer] office - can discharged home and follow up wtih me in clinic Thanks for consult Garrick Cosme MD
[2017-08-14] MEDS ORDERED: CHOLECALCIFEROL (VITAMIN D3) 1,000 UNIT TABLET (FP) PO SCH (10:00)
[2017-08-14] MEDS: METOPROLOL SUCCINATE 25 MG TAB.SR.24H (FP) PO SCH (10:38)
[2017-08-14] MEDS: CLOPIDOGREL BISULFATE 75 MG TABLET (FP) PO SCH (10:38)
[2017-08-14 10:40] VITALS: BP 137/59; PULSE 73; TEMP 97.8
--- NOTE | 2017-08-14 11:38 | DS ---
Physical Examination Vital Signs: Vital Signs Temperature 36.6 C 08/14/17 10:00 Pulse Rate 73 08/14/17 10:00 Respiratory Rate 19 08/14/17 10:00 Blood Pressure 137/59 08/14/17 10:00 O2 Sat by Pulse Oximetry (%) 96 08/14/17 06:00 Constitutional: Yes: Well Nourished, No Distress, Calm Cardiovascular: Yes: Regular Rate and Rhythm. No: Gallop, Murmur, Rub Respiratory: Yes: Regular, CTA Bilaterally. No: Rales, Rhonchi, Wheezes Gastrointestinal: Yes: Normal Bowel Sounds, Soft. No: Distention, Tenderness Extremities: Yes: WNL Edema: No Labs: CBC, BMP 08/14/17 05:35 08/14/17 05:35 Discharge Summary Reason For Visit: TRANSIENT CEREBRAL ISHEMIA Current Active Problems Diabetes (Acute) HLD (hyperlipidemia) (Acute) HTN (hypertension) (Acute) TIA (transient ischemic attack) (Acute) Hospital Course: (1) TIA (transient ischemic attack) Code(s): G45.9 - TRANSIENT CEREBRAL ISCHEMIC ATTACK, UNSPECIFIED Qualifiers: Transient cerebral ischemia type: unspecified Qualified Code(s): G45.9 - Transient cerebral ischemic attack, unspecified; G45.9 - Transient cerebral ischemic attack, unspecified; G45.9 - Transient cerebral ischemic attack, unspecified (2) HTN (hypertension) Code(s): I10 - ESSENTIAL (PRIMARY) HYPERTENSION (3) HLD (hyperlipidemia) Code(s): E78.5 - HYPERLIPIDEMIA, UNSPECIFIED (4) Diabetes Code(s): E11.9 - TYPE 2 DIABETES MELLITUS WITHOUT COMPLICATIONS Mrs Tucker is a very pleasant 72 year old female who comes in with a TIA. She was admitted under observation. She had recent outpatient carotid ultrasound, this was placed on the chart. She underwent ECHO, CT scan of the head, and MRI. She improved. She was seen by neurology. Her lipitor was increased and she was placed on plavix. She is to follow up with Dr Suarez next week and neurology in 3 weeks. She should have her blood pressure checked and medication adjusted if needed in the outpatient setting. 32 minutes spent in preparation of this discharge Condition: Good - Instructions Diet, Activity, Other Instructions: low fat diet. Resume previous activity. Follow up with Dr Suarez next week. Referrals: Don Suarez MD [Primary Care Provider] - Garrick Cosme MD [Staff Physician] - Edgardo Rascon MD [Staff Physician] - Disposition: HOME - Home Medications Comprehensive Discharge Medication List: Ambulatory Orders Aspirin [ASA -] 81 mg PO DAILY 12/12/15 Cholecalciferol (Vitamin D3) [Vitamin D3] 2,000 unit PO DAILY 12/12/15 Glyburide/Metformin HCl [Glyburide-Metformin 2.5-500 mg] 2 each PO BID 12/12/15 Lisinopril [Prinivil] 20 mg PO DAILY 12/12/15 Metoprolol Succinate [Toprol XL -] 25 mg PO DAILY 12/12/15 Sitagliptin Phosphate [Januvia] 100 mg PO DAILY 12/12/15 Atorvastatin Ca [Lipitor] 80 mg PO HS #30 tab 08/14/17 Clopidogrel Bisulfate [Plavix -] 75 mg PO DAILY #30 tablet 08/14/17
[2017-08-15 08:09] LABS: HEMATOCRIT 29.8 % (34.0-46.6)
== END 2017-08-14 12:39 | disposition home or self-care (01) ==
LOC: JER 21:23 → JERBED 22:47 → UNDOADMOB 23:54 → J4S 08-13 04:04
PROVIDERS: ADMIT Internal Medicine; ATTEND Internal Medicine
PROC: 3E033GC Introduction of Other Therapeutic Substance into Peripheral Vein, Percutaneous Approach (ICD-10-PCS; principal; 2017-08-12)
PROC: 3E0337Z Introduction of Electrolytic and Water Balance Substance into Peripheral Vein, Percutaneous Approach (ICD-10-PCS; 2017-08-12)
PROC: 3E013GC Introduction of Other Therapeutic Substance into Subcutaneous Tissue, Percutaneous Approach (ICD-10-PCS; 2017-08-12)
DX: G45.9 Transient cerebral ischemic attack, unspecified (principal); I10 Essential (primary) hypertension; I25.10 Atherosclerotic heart disease of native coronary artery without angina pectoris; E11.9 Type 2 diabetes mellitus without complications; E78.5 Hyperlipidemia, unspecified; R47.01 Aphasia; D50.9 Iron deficiency anemia, unspecified; Z95.5 Presence of coronary angioplasty implant and graft; Z79.82 Long term (current) use of aspirin; Z79.84 Long term (current) use of oral hypoglycemic drugs
CPT/HCPCS: 36415; 70450-TC; 70551-TC; 71010-TC; 80048; 80053; 81003; 81015; 82465; 82550; 82607; 82728; 82747; 83036; 83540; 83550; 83718; 83721; 83735; 84100; 84443; 84466; 84478; 84484; 85014; 85025; 85027; 85610; 85651; 86140; 86850; 86900; 86901; 93005; 93010; 93306-TC; 96372; 96374; 99285-25; G0378; J1644

== ENCOUNTER 2017-08-25 21:23 | Emergency (ER) | payer OTHER ==
[2017-08-25 21:51] VITALS: TEMP 98.3; BMI 28.5
--- NOTE | 2017-08-25 21:54 | PDOC ---
Attending Attestation - Resident Resident Name: Christiano Lopez - ED Attending Attestation I have performed the following: I have examined & evaluated the patient, The case was reviewed & discussed with the resident, I agree w/resident's findings & plan, Exceptions are as noted - HPI HPI: 08/26/17 00:47 Chief complaint: Hypertension History of present illness: 72 years old past medical history significant for diabetes, CAD status post stent, hypertension, TIA presents with several day history of elevated BP. Patient called her primary care provider took amlodipine and hydrochlorothiazide patient's blood pressure remained elevated patient came to the emergency department. Currently asymptomatic denies headache chest pain shortness of breath no nausea no vomiting no diarrhea ROS: A complete review of 10 out of 10 review of systems is taken and is negative apart from what is previously mentioned below and in the HPI. - Physicial Exam PE: Vitals: Triage Vital signs reviewed General Appearance: no acute distress, well nourished well developed, Neck: Supple;No Nucal rigidity Chest Wall: Nontender Cardiac: Regular rate and rhythym, no murmurs, no rubs, no gallops, Lungs: Clear to auscultation bilateral, good air movement bilaterally, Abdomen: Soft, non distended, normal bowel sounds, non tender to palpation Extremities: Full range of motion to all extremities, no cyanosis, clubbing, or edema Skin: Warm and dry, no rashes or lesions, no rash, no petechiae - Medical Decision Making 08/26/17 00:44 08/26/17 00:46 Well-appearing no apparent distress presents with hypertension asymptomatic. Labs within normal limits EKG unchanged Catapres patch placed. Patient has follow-up with her primary care provider
[2017-08-25 22:21] VITALS: PULSE 72
--- NOTE | 2017-08-25 22:27 | PDOC ---
History of Present Illness - General Chief Complaint: Blood Pressure Problem Stated Complaint: Blood Pressure Problem Time Seen by Provider: 08/25/17 21:48 - History of Present Illness Initial Comments: 08/25/17 22:17 The patient is a 72 yo f w/ PMH DM, CAD s/p stent in 2012, HTN, TIA (2 weeks ago ) comes into the ED c/o high blood pressure for the past 1 day. Patient has been following with Dr. Rascon since her discharge from [facility] 2 weeks ago. Today, the patient noticed that her SBP was in the 190's on her home BP cuff. The patient called Dr. Rascon, who prescribed the patient amlodipine and HCTZ and instructed her to recheck her BP in the PM. When the patient's BP remained elevated after the new meds, Dr. Rascon instruced the patient to come into the ED for evaluation. Patient denies CP, SOB, chest tightness, headache, dizziness , changes in vision, abdominal pain, dysuria or urinary frequency. 08/25/17 22:49 Past History - Past Medical History Allergies/Adverse Reactions: Allergies Allergy/AdvReac Type Severity Reaction Status Date / Time No Known Allergies Allergy Verified 08/25/17 21:48 Home Medications: Ambulatory Orders Aspirin [ASA -] 81 mg PO DAILY 12/12/15 Cholecalciferol (Vitamin D3) [Vitamin D3] 2,000 unit PO DAILY 12/12/15 Glyburide/Metformin HCl [Glyburide-Metformin 2.5-500 mg] 2 each PO BID 12/12/15 Lisinopril [Prinivil] 20 mg PO DAILY 12/12/15 Metoprolol Succinate [Toprol XL -] 25 mg PO DAILY 12/12/15 Atorvastatin Ca [Lipitor] 80 mg PO HS #30 tab 08/14/17 Clopidogrel Bisulfate [Plavix -] 75 mg PO DAILY #30 tablet 08/14/17 Amlodipine Besylate 5 mg PO DAILY 08/25/17 Hydrochlorothiazide [Hctz -] 12.5 mg PO DAILY 08/25/17 Cardiac Disorders: Yes CVA: Yes (tia 07/2017) CHF: No Diabetes: Yes GI Disorders: Yes HTN: Yes Hypercholesterolemia: Yes - Surgical History Cardiac Surgery: Yes (STENT) - Suicide/Smoking/Psychosocial Hx Smoking Status: No Smoking History: Never smoked Have you smoked in the past 12 months: No Information on smoking cessation initiated: No Hx Alcohol Use: No Drug/Substance Use Hx: No Substance Use Type: None Hx Substance Use Treatment: No Review of Systems - Review of Systems Constitutional: No: Chills, Fever, Malaise, Weakness HEENTM: No: Eye Pain, Blurred Vision, Recent change in vision, Double Vision Respiratory: No: Shortness of Breath Cardiac (ROS): No: Chest Pain, Edema, Palpitations, Chest Tightness ABD/GI: No: Abdominal Distended, Abdominal cramping : Yes: Frequency. No: Burning, Dysuria Neurological: No: Headache, Numbness, Paresthesia, Weakness, Dizziness *Physical Exam - Vital Signs Last Vital Signs Temp Pulse Resp BP Pulse Ox 98.3 F 74 14 182/51 100 08/25/17 21:40 08/25/17 21:40 08/25/17 21:40 08/25/17 21:40 08/25/17 21:40 - Physical Exam General Appearance: Yes: Appropriately Dressed. No: Apparent Distress HEENT: positive: EOMI, FIGUEROA Respiratory/Chest: positive: Lungs Clear, Normal Breath Sounds. negative: Respiratory Distress, Accessory Muscle Use Cardiovascular: positive: Regular Rhythm, Regular Rate, S1, S2. negative: Edema , JVD, Murmur, Gallop/S3, Gallop/S4 Gastrointestinal/Abdominal: positive: Normal Bowel Sounds, Flat, Soft. negative : Tender Neurologic: positive: nonprofit manager II-XII NML intact, Fully Oriented, Alert, Normal Mood/ Affect, Normal Response, Motor Strength 5/5. negative: EOM Palsy, Sensory Deficit ED Treatment Course - LABORATORY CBC & Chemistry Diagram: 08/25/17 23:05 08/25/17 23:05 Medical Decision Making - Medical Decision Making 08/25/17 22:39 The patient is a 72 yo f w/ PMH CAD (s/p stenting in 2012) DM, HTN, TIA 2 weeks ago comes into the ed c/o elevated BP for the past 1 day. Patient is asymptomatic at this time without overt indication of end organ damage. -CBC, CMP, urinalysis -catapres patch .2mg -will reassess BP -EKG -troponins 08/25/17 23:15 -EKG shows NSR at 73 with evidence of anterior and inferior infarcts of undetermined age, unchanged from EKG taken on admission [address] elevations or inversions seen. -will f/u initial troponin 08/26/17 00:15 -CBC, CMP WNL -Troponin negative 08/26/17 00:17 -on reassessment, blood pressure 180/79, though patient continues to be without symptoms. Given that the patient has been asymptomatic throughout her stay in the ER, her EKG is unchanged and her troponin is negative, we will discharge the patient home with catapres patch and instructions to follow up with her statistical methods teacher tomorrow for reassessment. *DC/Admit/Observation/Transfer Diagnosis at time of Disposition: HTN (hypertension) Qualifiers: Hypertension type: unspecified Qualified Code(s): I10 - Essential (primary) hypertension; I10 - Essential (primary) hypertension; I10 - Essential (primary) hypertension - Discharge Dispostion Disposition: HOME Condition at time of disposition: Improved Admit: No - Patient Instructions Printed Discharge Instructions: DI for High Blood Pressure Additional Instructions: You should follow up with your statistical methods teacher, Dr. Rascon, within 1-2 days in order to have your blood pressure checked. We are sending you home with a catapres (clonidine) patch to help control your blood pressure. This patch slowly releases medication over 1 week. Your doctor may change your blood pressure medications or remove the patch when you visit them. Please take the rest of your medications as prescribed. If you begin to experience chest pain, shortness of breath, headache, changes in vision or if any of your symptoms get worse, please call your doctor or return to the emergency department.
[2017-08-25] MEDS ORDERED: cloNIDine-TTS 0.2 MG/24 HOURS PATCH.TDWK TD SCH (23:00)
[2017-08-25 23:15] LABS: MCHC 32.8 g/dl (32.0-36.0); MEAN PLT VOLUME 8.6 fl (7.5-11.1); PLATELET COUNT 247 K/MM3 (134-434); WHITE BLOOD COUNT 6.1 K/mm3 (4.0-10.0)
[2017-08-25 23:38] LABS: ALBUMIN 4.5 g/dl (3.4-5.0); ANION GAP 12 (8-16); BILIRUBIN,TOTAL 0.9 mg/dL (0.2-1.0); CALCIUM 9.8 mg/dL (8.5-10.1); CO2 25 mmol/L (21-32); CREATININE 0.5 mg/dL (0.55-1.02); GLUCOSE,RANDOM 68 mg/dL (74-106); SGOT/AST 11 U/L (15-37); SGPT/ALT 21 U/L (12-78); TOT PROT 7.1 g/dl (6.4-8.2)
[2017-08-25 23:39] LABS: ALK PHOS 79 U/L (45-117)
[2017-08-25 23:54] LABS: PLATELET ESTIMATE ADEQUATE (NORMAL)
[2017-08-25 23:55] LABS: HYPOCHROMIA 3+; MICROCYTOSIS 2+; OVALOCYTE 2+
[2017-08-26 00:46] VITALS: BP 173/75
--- NOTE | 2017-08-26 13:51 | EKG ---
Test Reason : Blood Pressure : / mmHG Vent. Rate : 073 BPM Atrial Rate : 073 BPM P-R Int : 154 ms QRS Dur : 106 ms QT Int : 396 ms P-R-T Axes : 040 024 002 degrees QTc Int : 436 ms NORMAL SINUS RHYTHM POSSIBLE LEFT ATRIAL ENLARGEMENT LEFT VENTRICULAR HYPERTROPHY WITH REPOLARIZATION ABNORMALITY INFERIOR INFARCT , AGE UNDETERMINED ANTERIOR INFARCT (CITED ON OR BEFORE 23-OCT-2010) ABNORMAL ECG WHEN COMPARED WITH ECG OF 13-AUG-2017 09:57, T WAVE INVERSION MORE EVIDENT IN INFERIOR LEADS REPEAT EKG IF CLINICALLY INDICATED Confirmed by LANEY CABRERA MD ([id number]) on 08/26/2017 1:51:31 PM Referred By: Confirmed By:LANEY CABRERA MD
[2017-09-01] MEDS ORDERED: cloNIDine-TTS 0.2 MG/24 HOURS PATCH.TDWK TD SCH (10:00)
== END 2017-08-26 00:46 | disposition home or self-care (01) ==
LOC: JER 21:23
DX: I10 Essential (primary) hypertension (principal); I25.10 Atherosclerotic heart disease of native coronary artery without angina pectoris; Z95.5 Presence of coronary angioplasty implant and graft; E11.9 Type 2 diabetes mellitus without complications; Z79.84 Long term (current) use of oral hypoglycemic drugs; Z86.73 Personal history of transient ischemic attack (TIA), and cerebral infarction without residual deficits
CPT/HCPCS: 36415; 80053; 84484; 85027; 93005; 93010; 99281-25

== ENCOUNTER 2018-05-10 08:28 | Emergency (ER) | payer OTHER ==
[2018-05-10 09:02] VITALS: BMI 28.1
[2018-05-10] MEDS ORDERED: traMADol HCL 50 MG TABLET PO ONE (09:58)
[2018-05-10] MEDS ORDERED: traMADol HCL 50 MG TABLET ONE (10:03)
--- NOTE | 2018-05-10 10:40 | PDOC ---
History of Present Illness - General Chief Complaint: Pain, Acute Stated Complaint: SWOLLEN RT KNEE Time Seen by Provider: 05/10/18 09:31 - History of Present Illness Initial Comments: 05/10/18 11:14 The patient is a 73 year old male, with a significant PMH of diabetes, CAD status post stent, hypertension, TIA who presents to the emergency department with right knee pain that began 4 days ago. Patient describes right knee pain as constant, dull and aching with severity of 7/10 located to the anterior superior lateral aspect of the patella with out relief with Tylenol or Aleve. Patient reports pains is exacerbated with movement that gets worse at night but able to bear weight and ambulate. Patient also mentioned she went to [place] recently with her and walked a lot. Denies trauma, calf pain. The patient denies chest pain, shortness of breath, headache and dizziness. Denies fever, chills, nausea, vomit, diarrhea and constipation. Denies dysuria, frequency, urgency and hematuria. Allergies: NKA Past surgical history: None reported Social history: None reported PCP: Don Suarez Past History - Past Medical History Allergies/Adverse Reactions: Allergies Allergy/AdvReac Type Severity Reaction Status Date / Time No Known Allergies Allergy Verified 05/10/18 08:41 Home Medications: Ambulatory Orders Cholecalciferol (Vitamin D3) [Vitamin D3] 2,000 unit PO DAILY 12/12/15 Lisinopril [Prinivil] 20 mg PO BID 12/12/15 Metoprolol Succinate [Toprol XL -] 25 mg PO DAILY 12/12/15 Clopidogrel Bisulfate [Plavix -] 75 mg PO DAILY #30 tablet 08/14/17 Amlodipine Besylate 5 mg PO DAILY 08/25/17 Atorvastatin Ca [Lipitor] 40 mg PO HS 05/10/18 Clonidine Patch [Catapres Tts Patch -] 0.2 mg TD WEEKLY 05/10/18 Glyburide/Metformin HCl [Glyburide-Metformin 2.5-500 mg] 1 each PO DAILY Pioglitazone HCl [Actos] 45 mg PO ASDIR 05/10/18 Sitagliptin Phosphate [Januvia] 100 mg PO AM 05/10/18 Cardiac Disorders: Yes CVA: Yes (tia 07/2017) CHF: No Diabetes: Yes GI Disorders: Yes HTN: Yes Hypercholesterolemia: Yes - Surgical History Cardiac Surgery: Yes (STENT) - Suicide/Smoking/Psychosocial Hx Smoking Status: No Smoking History: Never smoked Have you smoked in the past 12 months: No Information on smoking cessation initiated: No Hx Alcohol Use: No Drug/Substance Use Hx: No Substance Use Type: None Hx Substance Use Treatment: No Review of Systems - Review of Systems Comments:: 05/10/18 11:34 GENERAL/CONSTITUTIONAL: No fever or chills. No weakness. HEAD, EYES, EARS, NOSE AND THROAT: No change in vision. No ear pain or discharge. No sore throat. GASTROINTESTINAL: No nausea, vomiting, diarrhea or constipation. GENITOURINARY: No dysuria, frequency, or change in urination. CARDIOVASCULAR: No chest pain or shortness of breath. RESPIRATORY: No cough, wheezing, or hemoptysis. MUSCULOSKELETAL:+Right knee pain. No neck or back pain. SKIN: No rash NEUROLOGIC: No headache, vertigo, loss of consciousness, or change in strength/ sensation. ENDOCRINE: No increased thirst. No abnormal weight change. HEMATOLOGIC/LYMPHATIC: No anemia, easy bleeding, or history of blood clots. ALLERGIC/IMMUNOLOGIC: No hives or skin allergy. *Physical Exam - Vital Signs Last Vital Signs Temp Pulse Resp BP Pulse Ox 97.9 F 71 18 103/41 99 05/10/18 08:37 05/10/18 08:37 05/10/18 08:37 05/10/18 08:37 05/10/18 08:37 - Physical Exam Comments: 05/10/18 11:18 GENERAL: Awake, alert, and fully oriented, in no acute distress HEAD: No signs of trauma EYES: PERRLA, EOMI, sclera anicteric, conjunctiva clear ENT: Auricles normal inspection, hearing grossly normal, nares patent, oropharynx clear without exudates. Moist mucosa NECK: Normal ROM, supple, no lymphadenopathy, JVD, or masses LUNGS: Breath sounds equal, clear to auscultation bilaterally. No wheezes, and no crackles HEART: Regular rate and rhythm, normal S1 and S2, no murmurs, rubs or gallops ABDOMEN: Soft, nontender, normoactive bowel sounds. No guarding, no rebound. No masses EXTREMITIES: R knee with balotable small effusion to superiolateral aspect of knee. Otherwise, normal range of motion. No clubbing or cyanosis. No cords, erythema. NEUROLOGICAL: Normal speech, cranial nerves intact, negative pronator drift, 5/ 5 strength in all 4 extremities, normal sensation to light touch in all 4 extremities, normal cerebellar exam, antalgic but steady gait, normal reflexes and tone SKIN: Warm, Dry, normal turgor, no rashes or lesions noted. ED Treatment Course - RADIOLOGY Radiology Studies Ordered: Category Date Time Status KNEE 4 POS-RIGHT [RAD] Stat Radiology 05/10/18 09:56 Completed DUPLEX VASCUL US-1 LEG [US] Stat Ultrasound 05/10/18 09:57 Ordered - Medications Given in the ED: ED Medications Discontinued Medications Generic Name Dose Route Start Last Admin Trade Name Freq PRN Reason Stop Dose Admin Tramadol HCl 50 mg 05/10/18 09:58 05/10/18 10:06 Ultram - PO 05/10/18 09:59 50 mg ONCE ONE Administration Medical Decision Making - Medical Decision Making 05/10/18 11:19 73yo F presents to the ED with R knee pain after walking a lot while visiting [place]. Pt's BP initially 104/41, but on repeat a few mins later without intervention, BP was 140/70s in both arms. Exam with palpable supralateral effusion, but full ROM, no post knee or calf ttp, able to bear weight, and no erythema or warmth. XR with small suprapatellar effusion, US with bakers cyst and no DVT. Likely both due to recent exertion and arthritis. Pt has seen Dr. Cohen in the past for her L shoulder, advised her to f/u with him and rest, ice, elevate her knee. For pain, given hx of CAD, advised her to take tylenol every 6 hours and prescribed tramadol as needed if tylenol does not control pain. I discussed the physical exam findings, ancillary test results and final diagnoses with the patient. I answered all of the patient's questions. The patient was satisfied with the care received and felt comfortable with the discharge plan and treatment plan. The patient will call their primary care physician within 24 hours to arrange follow-up and will return to the Emergency Department with any new, persistent or worsening symptoms. *DC/Admit/Observation/Transfer Diagnosis at time of Disposition: Knee effusion, right, Montez's cyst, unruptured - Discharge Dispostion Disposition: HOME Condition at time of disposition: Stable Decision to Admit order: No - Referrals Referrals: Don Suarez MD [Primary Care Provider] - Celestino Cohen MD [Staff Physician] - - Patient Instructions Printed Discharge Instructions: Bakers Cyst, DI for Knee Effusion Additional Instructions: As discussed, follow up with Dr. Cohen within 1 week. Take 1000mg tylenol as needed for pain every 6 hours. Take tramadol if tylenol is not controlling your pain, but do not drive while taking tramodol as it can make you sleepy. Return to the emergency department if you have any new, worsening, or concerning symptoms. - Post Discharge Activity - Attestations Physician Attestion: 05/10/18 11:27 I, Dr. Walt Rosales MD, attest that this document has been prepared under my direction and personally reviewed by me in its entirety. I further attest, that it accurately reflects all work, treatment, procedures and medical decision -making performed by me.
[2018-05-10 11:54] VITALS: BP 103/40; PULSE 70; TEMP 97.8
== END 2018-05-10 11:54 | disposition home or self-care (01) ==
LOC: JER 08:28
DX: M71.21 Synovial cyst of popliteal space [Baker], right knee (principal); M25.461 Effusion, right knee; I25.10 Atherosclerotic heart disease of native coronary artery without angina pectoris; I10 Essential (primary) hypertension; Z95.5 Presence of coronary angioplasty implant and graft; E11.9 Type 2 diabetes mellitus without complications; Z79.84 Long term (current) use of oral hypoglycemic drugs; E78.00 Pure hypercholesterolemia, unspecified; Z86.73 Personal history of transient ischemic attack (TIA), and cerebral infarction without residual deficits
CPT/HCPCS: 73564-TC-RT-FY; 93971-TC; 99281-25

== ENCOUNTER 2022-05-09 14:43 | Emergency (ER) | payer OTHER ==
[2022-05-09 15:06] VITALS: BP 103/58; PULSE 71; TEMP 98; BMI 27.1
[2022-05-09] MEDS ORDERED: DIPHTH,PERTUSS(ACELL),TET 0.5 ML DISP.SYRIN IM ONE ×2 (16:45→16:56)
== END 2022-05-09 20:02 | disposition home or self-care (01) ==
LOC: JER 14:43
PROC: 3E0234Z Introduction of Serum, Toxoid and Vaccine into Muscle, Percutaneous Approach (ICD-10-PCS; principal; 2022-05-09)
DX: M79.602 Pain in left arm (principal); S60.211A Contusion of right wrist, initial encounter; M25.561 Pain in right knee; M25.562 Pain in left knee; S09.90XA Unspecified injury of head, initial encounter; W19.XXXA Unspecified fall, initial encounter; Y92.9 Unspecified place or not applicable
CPT/HCPCS: 70450-TC; 70486-TC; 73070-TC-LT-FY; 73070-TC-RT-FY; 73090-TC-LT-FY; 73090-TC-RT-FY; 73110-TC-LT-FY; 73110-TC-RT-FY; 73130-TC-LT-FY; 73130-TC-RT-FY; 73562-TC-LT-FY; 73562-TC-RT-FY; 90471; 90715; 99284-25